=== PATIENT | male | born 1980 | race African-American/Black ===

== ENCOUNTER → 2018-03-25 06:11 | Outpatient (CLI) | payer OTHER ==
[~2018-03-25 06:11] MED LIST: LISINOPRIL10 MG PO
[2018-05-13 06:37] VITALS: BMI 32.8
== END | disposition home or self-care (01) ==
LOC: D.MRI 06:11
DX: S76.112A Strain of left quadriceps muscle, fascia and tendon, initial encounter (principal); X58.XXXA Exposure to other specified factors, initial encounter

== ENCOUNTER 2018-05-13 05:11 | Day surgery (SDC) | payer OTHER ==
[~2018-05-13] VITALS: Ht 160 cm; Wt 83.9 kg
--- NOTE | ~2018-05-13 | OP ---
PATIENT NAME: VLADIMIR NAIDU MEDICAL RECORD: [id number] :80 LOCATION:DIMITRY ADMISSION DATE: SURGEON: JAMIE DEAN DO DATE OF OPERATION: 05/13/2018 PROCEDURE PERFORMED: Left knee patellar tendon repair and left knee arthroscopy with partial lateral meniscectomy. PREOPERATIVE DIAGNOSES: Left patellar tendon rupture, midsubstance. Left knee lateral meniscal tear. POSTOPERATIVE DIAGNOSES: Left patellar tendon rupture, midsubstance. Left knee lateral meniscal tear. INDICATIONS: Mr. Naidu is a 37-year-old inmate who fell down some stairs in December, sustained a patellar tendon rupture and was unable to bear weight for quite some time. I did not see him until March of this year as he had been through therapy and had gained some movement back; however, he could not do a straight leg raise when I saw him and cannot fully extend his left leg at the knee joint. He also has some lateral joint line tenderness. An MRI was done, which showed a midsubstance patellar tendon rupture and lateral meniscal tear. Found back in the office, informed him of the risks and benefits of procedures and by that time he could do a straight leg raise; however, he could not get full extension and he had a lot of loss of strength. He said this was not acceptable to him and that he wanted to have a fixed. I informed him due to the chronicity of the tear, I would do my best, but the outcomes are generally not as good with chronic tears, but we can get the patella as he had patella jessica noted on x-ray and MRI. We will get the patella back down where it should be and should be able to get him into full extension. He was okay with that and also informed him of his lateral meniscal tearing, I said I would fix it versus trimming it out depending on how far it went into the meniscus and the location. He was okay with that and wanted to proceed forward. I informed the risks and benefits including infection, bleeding, need for further surgery and failure of the repair. SURGEON: Jamie Dean DO DESCRIPTION OF PROCEDURE: The patient was given a block by anesthesia preoperative area, given 2 grams Ancef preoperatively. Taken to the operative suite, laid in supine position, given general anesthetic, intubated and had an LMA placed rather. The left lower extremity was prepped and draped in sterile fashion. Once he was prepped and draped, timeout was performed. Everyone was in agreement with the correct side, site, patient and procedure. The incision then began down the midline of the knee, down to the capsule itself and the patella. The patella was seen to be high riding in the retinaculum of the knee was seen to be ruptured and the patellar tendon as well as except for one small strand of the mid substance of it. A Krackow stitch was then used with FiberWire, 4 strands of it up and down both the distal and proximal end up through the patellar tendon and these were tied down. A lateral x-ray was done and seemed to need to pull the patella slightly more distally in order to line up with Blumensaat's line on the 30-degree flexion view. Then, a FiberTape was used in a Krackow stitch up the patellar tendon and back down first medially, then laterally and this was anchored along with the other sutures they were used down into the tibia with 4.75 anchor. Then, a FiberTape was ran up all the way around the circumference of the patella, anchored on both the medial and lateral OPERATIVE REPORT [id number] VLADIMIR NAIDU. X-rays were done on AP, it was seen to be very well centered and on the lateral was seen to be equal to the right knee on a 30-degree flexion view. After this was performed, prior to the repair, the retinaculum was closed with #1 Vicryl in a egbzrc-jt-[id number] fashion along the inferior border of the capsule itself, assisting the closure of the repair of the patellar tendon. Then, the synovial tissue over the capsule itself that layer was closed in a nveigz-yf-yymzd fashion with #1 Vicryl and then the skin was closed with 2-0 Vicryl in inverted interrupted fashion. Then, the knee scope began, the knee was brought to flexed position and the lateral portal was established with 11-blade scalpel. The scope was entered into the knee. Inspection was made. No loose bodies were seen in the suprapatellar pouch or in the lateral gutter or medial gutter. Then, the knee was flexed down and a lateral portal was established first making an 18-gauge spinal needle and then an 11-blade scalpel. This was entered into the knee and then a probe was used to probe the medial meniscus. No tear was seen as well as the ACL and the tear was seen in the ACL, very taut, and the knee was hschun-ht-cbzl'ed and lateral compartment was viewed and a small vertical tear was seen, it did not go all the way through the meniscus, just on the anterior side, the wide region of the meniscus. This was then trimmed out with a biter and shaver. Once trimmed back to a stable position, viewed the patellar itself, this seemed to ride very well in the trochlea, flexed down in good position. The scope was then removed from the knee and the portal sites were closed with 4-0 Monocryl and Steri-Strips and then a ZipLine was placed over the long midline incision. Adaptic, 4 x 4s, ABD, Webril and Jj wrap were then placed on the knee and the knee was mobile, was placed on the patient. A tourniquet was used during the procedure and was up prior to starting the incision, inflated to 350 mmHg. It was let down at 85 minutes prior to closing the midline incision. COMPLICATIONS: None. BLOOD LOSS: About 50 mL. TRANSINT:[id number] Voice Confirmation ID: [id number] DOCUMENT ID: [id number] JAMIE DEAN DO at 1744 CC: [id number] DICTATION DATE: 05/13/18 1110 BIOLOGICAL TECHNICIAN: 05/13/18 1229 [facility] 05/13/18 [place] [id number] [place] [id number]
[2018-05-13 06:23] LABS: HEMATOCRIT 42.3 % (42.0-54.0); HEMOGLOBIN 14.3 g/dL (13.5-17.5); MCHC 33.8 g/dL (31.0-37.0); MCV 82.9 fL (80.0-100.0); MEAN PLATELET VOLUME 8.8 fL (7.4-10.4); PLATELET COUNT 270 10x3/uL (130-400); RDW 14.1 % (11.5-14.5); WBC 6.2 10x3/uL (4.8-10.8)
[2018-05-13] MEDS ORDERED: LISINOPRIL10 MG PO (06:28)
[2018-05-13 06:37] VITALS: BP 137/99; Ht 160 cm; Wt 83.9 kg
[2018-05-13 07:18] LABS: EOSINOPHILS 2 % (0-7); LYMPHOCYTES 62 % (15-50); MONOCYTES 6 % (2-11); NEUTROPHILS 24 % (40-80); PLATELET ESTIMATE NORMAL
== END 2018-05-13 12:30 | disposition home or self-care (01) ==
LOC: D.OPS 05:11
PROVIDERS: Anesthesiology
DX: S83.282A Other tear of lateral meniscus, current injury, left knee, initial encounter (principal); S76.112A Strain of left quadriceps muscle, fascia and tendon, initial encounter; X58.XXXA Exposure to other specified factors, initial encounter; Z01.812 Encounter for preprocedural laboratory examination